=== PATIENT | male | born 1960 | race African-American/Black ===

== ENCOUNTER 2018-12-27 09:11 | Inpatient (IN) | payer OTHER ==
[2018-12-27 09:31] VITALS: BMI 21.8
--- NOTE | 2018-12-27 11:01 | HP ---
CIWA Score Nausea/Vomitin Muscle Tremors: 3 Anxiety: 2 Agitation: 2 Paroxysmal Sweats: 1-Minimal Palms Moist Orientation: 0-Oriented Tacttile Disturbances: 1-Very Mild Itch/Numbness Auditory Disturbances: 1-Very Mild Visual Disturbances: 0-None Headache: 2-Mild CIWA-Ar Total Score: 14 - Admission Criteria OASAS Guidelines: Admission for Medically Managed Detox: Requires at least one of the followin. CIWA greater than 12 2. Seizures within the past 24 hours 3. Delirium tremens within the past 24 hours 4. Hallucinations within the past 24 hours 5. Acute intervention needed for co occurring medical disorder 6. Acute intervention needed for co occurring psychiatric disorder 7. Severe withdrawal that cannot be handled at a lower level of care (continued vomiting, continued diarrhea, abnormal vital signs) requiring intravenous medication and/or fluids 8. Patient presents the following: CIWA greater than 12 Admission Criteria Met: Admission criteria met Admission ROS BHS - HPI Chief Complaint: i need help to stop drinking alcohol and crack Allergies/Adverse Reactions: Allergies Allergy/AdvReac Type Severity Reaction Status Date / Time fluphenazine [From Prolixin] Allergy Severe Difficulty Verified 12/27/18 10:31 Breathing haloperidol [From Haldol] Allergy Severe Difficulty Verified 12/27/18 10:31 Breathing History of Present Illness: this 58 years old male with alcohol and cocaine dependence,seeking detox, withdrawal symptom,last [facility] rehab 01/09/13 to 02/06/13 rehab [facility] syncope alcohol related hepatitis c history of cancer of lier on radiation therapy treated at [facility] in 05/25 hiv since 1985 weight loss nicotine dependence history of fx right mandible,right knee replacement,left knee surgery,fx of right ankle weight loss gerd multiple admissions in detox and rehab but relapsing longest period of sobriety in 1 year Exam Limitations: No Limitations - Ebola screening Have you traveled outside of the country in the last 21 days: No Have you had contact with anyone from an Ebola affected area: No Have you been sick,other than usual withdrawal symptoms: No Do you have a fever: No - Review of Systems Constitutional: Loss of Appetite, Malaise, Night Sweats, Changes in sleep, Weakness, Unintentional Wgt. Loss EENT: reports: Nose Congestion Respiratory: reports: No Symptoms reported Cardiac: reports: No Symptoms Reported GI: reports: Nausea, Poor Appetite, Vomiting, Abdominal cramping, Other (cancer of liver) : reports: No Symptoms Reported Musculoskeletal: reports: Back Pain, Muscle Pain Integumentary: reports: Dryness Neuro: reports: Headache, Tremors Endocrine: reports: No Symptoms Reported Hematology: reports: No Symptoms Reported, Other (hiv) Psychiatric: reports: No Sypmtoms Reported, Judgement Intact, Mood/Affect Appropiate, Orientated x3, other (severe depression bipolar disorder) Patient History - Patient Medical History Hx Anemia: No Hx Asthma: No Hx Chronic Obstructive Pulmonary Disease (COPD): No Hx Cancer: Yes (cancer of liver treated with radiation therapy at [facility] ) Hx Cardiac Disorders: No Hx Congestive Heart Failure: No Hx Hypertension: No Hx Hypercholesterolemia: No Hx Pacemaker: No HX Cerebrovascular Accident: No Hx Seizures: No Hx Dementia: No Hx Diabetes: No Hx Gastrointestinal Disorders: Yes (gerd) Hx Liver Disease: Yes (cancer of liver,hepatitis c) Hx Genitourinary Disorders: No Hx Sexually Transmitted Disorders: No Hx Renal Disease (ESRD): No Hx Thyroid Disease: No Hx Human Immunodeficiency Virus (HIV): Yes (since in 1985) Hx Hepatitis C: Yes (no treatment) Hx Depression: Yes (AND ANXIETY,bipolar) Hx Suicide Attempt: Yes (walk into traffic in 2010) Hx Bipolar Disorder: Yes Hx Schizophrenia: No Other Medical History: no suicidal,no homicidal - Patient Surgical History Past Surgical History: Yes Hx Orthopedic Surgery: Yes (FRACTURED RT. KNEE BONES IN 11/2012,right knee replacement) Other Surgical History: fx of right ankle,fx of mandible - PPD History Previous Implant?: Yes Documented Results: Negative w/proof PPD to be Administered?: No - Smoking Cessation Smoking history: Current every day smoker Aproximately how many cigarettes per day: 10 Hx Chewing Tobacco Use: No Initiated information on smoking cessation: Yes 'Breaking Loose' booklet given: 12/27/18 - Substance & Tx. History Hx Alcohol Use: Yes Hx Substance Use: Yes Substance Use Type: Alcohol, Cocaine Hx Substance Use Treatment: Yes - Substances Abused Crack Route: Smoking Frequency: Daily Amount used: $30 Age of first use: 16 Date of Last Use: 12/26/18 Alcohol-vodka/beer Route: Oral Frequency: Daily Amount used: 3 pts./1-2-6 pks. Age of first use: 16 Date of Last Use: 12/26/18 Family Disease History - Family Disease History Family History: Denies Admission Physical Exam [facility] - Vital Signs Vital Signs: Vital Signs - 24 hr 12/27/18 09:29 Temperature 99 F Pulse Rate 85 Respiratory 18 Rate Blood Pressure 121/75 - Physical General Appearance: Yes: Moderate Distress, Irritable, Sweating, Anxious HEENTM: Yes: Normal ENT Inspection, Pharynx Normal, Other (no upper teeth no denture) Respiratory: Yes: Lungs Clear, Normal Breath Sounds, No Respiratory Distress Neck: Yes: Supple Breast: Yes: Within Normal Limits Cardiology: Yes: Within Normal Limits, Regular Rhythm, Regular Rate, S1, S2 Abdominal: Yes: Within Normal Limits, Normal Bowel Sounds, Non Tender, Soft Genitourinary: Yes: Within Normal Limits Back: Yes: Muscle Spasm Musculoskeletal: Yes: Back pain, Muscle Pain Extremities: Yes: Tremors, Other (s/p right knee rplacement , s/p surgery left knee s/p surgery of right ankle) 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 NML intact, Fully Oriented, Alert, Motor Strength 5/5 Integumentary: Yes: Dry Lymphatic: Yes: Within Normal Limits - Diagnostic (1) Alcohol dependence with uncomplicated withdrawal Current Visit: Yes Status: Acute (2) Cocaine dependence Current Visit: Yes Status: Acute (3) Syncope Current Visit: Yes Status: Acute (4) Hepatitis C Current Visit: Yes Status: Acute (5) Cancer of liver Current Visit: Yes Status: Acute (6) HIV (human immunodeficiency virus infection) Current Visit: Yes Status: Acute (7) Bipolar disorder Current Visit: Yes Status: Acute (8) Weight loss Current Visit: Yes Status: Acute (9) Bipolar disorder Current Visit: Yes Status: Acute (10) Depression Current Visit: Yes Status: Acute (11) Nicotine dependence Current Visit: Yes Status: Acute (12) Status post right knee replacement Current Visit: Yes Status: Acute (13) History of left knee surgery Current Visit: Yes Status: Acute (14) Fracture of right ankle Current Visit: Yes Status: Acute Cleared for Admission [facility] - Detox or Rehab [facility] Level of Care: Medically Managed Detox Regimen/Protocol: Librium S Breath Alcohol Content Breath Alcohol Content: 0 Urine Drug Screen - Results Drug Screen Negative: No Urine Drug Screen Results: RADHA-Cocaine Inpatient Rehab Admission - Rehab Decision to Admit Inpatient rehab admission?: No
[2018-12-27] MEDS ORDERED: hydrOXYzine PAMOATE 25 MG CAPSULE (FP) PO PRN (11:19)
[2018-12-27] MEDS ORDERED: MAGNESIUM HYDROX 2400MG/30ML ORAL SUSPENSION 30 ML CUP PO PRN (11:19)
[2018-12-27] MEDS ORDERED: chlordiazePOXIDE HCL 25 MG CAPSULE PO PRN (11:19)
[2018-12-27] MEDS ORDERED: MAGNESIUM CITRATE 300 ML BOTTLE PO PRN (11:19)
[2018-12-27] MEDS ORDERED: MAG HYDROX/AL HYDROX/SIMETH 30 ML UNIT-DOSE CUP PO PRN (11:19)
[2018-12-27] MEDS ORDERED: ACETAMINOPHEN 325 MG TABLET (FP) PO PRN (11:19)
[2018-12-27] MEDS ORDERED: P-EPHED 60MG/TRIPROLIDI 2.5MG TABLET PO PRN (11:19)
[2018-12-27] MEDS ORDERED: MENTHOL/PHENOL 1 EACH UD MM PRN (11:19)
[2018-12-27] MEDS ORDERED: guaiFENesin/D-METHORPHAN HB 10 ML UNIT-DOSE CUPS PO PRN (11:19)
[2018-12-27] MEDS ORDERED: LOPERAMIDE HCL 2 MG CAPSULE PO PRN (11:19)
[2018-12-27] MEDS ORDERED: IBUPROFEN 400 MG TABLET (FP) PO PRN (11:19)
[2018-12-27] MEDS: chlordiazePOXIDE HCL 25 MG CAPSULE PO SCH ×2 (17:35→22:30)
[2018-12-27] MEDS ORDERED: MELATONIN 5 MG TABLETS PO PRN (22:00)
[2018-12-27] MEDS: THIAMINE HCL 100 MG TABLET (FP) PO SCH (22:30)
[2018-12-28] MEDS: chlordiazePOXIDE HCL 25 MG CAPSULE PO SCH ×4 (05:42→22:57)
[2018-12-28 11:11] LABS: ALK PHOS 240 U/L (45-117); ANION GAP 8 MMOL/L (8-16); BILIRUBIN,TOTAL 0.6 mg/dL (0.2-1); BLOOD UREA NITROGEN 13 mg/dL (7-18); CALCIUM 8.1 mg/dL (8.5-10.1); CHLORIDE 107 mmol/L (98-107); CO2 23 mmol/L (21-32); GLUCOSE,RANDOM 105 mg/dL (74-106); POTASSIUM 3.9 mmol/L (3.5-5.1); SGOT/AST 195 U/L (15-37); SGPT/ALT 88 U/L (13-61); SODIUM 138 mmol/L (136-145); TOT PROT 8.5 g/dl (6.4-8.2)
[2018-12-28] MEDS: PRENATAL VITAMINS W/ FOLIC ACID TABLET (FP) PO SCH (11:20)
--- NOTE | 2018-12-28 11:21 | PN ---
[facility] CIWA - CIWA Score Nausea/Vomitin-No Nausea/No Vomiting Muscle Tremors: 3 Anxiety: 2 Agitation: 3 Paroxysmal Sweats: 3 Orientation: 0-Oriented Tacttile Disturbances: 0-None Auditory Disturbances: 0-None Visual Disturbances: 0-None Headache: 0-None Present CIWA-Ar Total Score: 11 S Progress Note (SOAP) Subjective: sweats shakes interrupted sleep body aches tired Objective: 12/28/18 11:22 Vital Signs Temperature 98.2 F 12/28/18 09:34 Pulse Rate 78 12/28/18 09:34 Respiratory Rate 17 12/28/18 09:34 Blood Pressure 121/64 12/28/18 09:34 O2 Sat by Pulse Oximetry (%) Laboratory Tests 12/28/18 05:45 Sodium 138 Potassium 3.9 Chloride 107 Carbon Dioxide 23 Anion Gap 8 BUN 13 Creatinine 1.0 Creat Clearance w eGFR > 60 Random Glucose 105 Calcium 8.1 L Total Bilirubin 0.6 AST 195 H ALT 88 H Alkaline Phosphatase 240 H Total Protein 8.5 H Albumin 2.0 L labs pending aaox3 ambulating no acute distress Assessment: 12/28/18 11:22 withdrawal sx Plan: continue detox increase fluids labs pending
[2018-12-28 13:13] LABS: HEMATOCRIT 32.1 % (35.4-49); HEMOGLOBIN 11.2 GM/dL (11.7-16.9); MCH 33.4 pg (25.7-33.7); MEAN CELL VOLUME 95.5 fl (80-96); RBC 3.36 M/mm3 (4.00-5.60); RDW 16.3 % (11.9-15.9); WHITE BLOOD COUNT 3.1 K/mm3 (4.0-10.0)
[2018-12-28] MEDS: THIAMINE HCL 100 MG TABLET (FP) PO SCH (22:57)
[2018-12-29] MEDS: chlordiazePOXIDE HCL 25 MG CAPSULE PO SCH ×2 (05:36→10:59)
--- NOTE | 2018-12-29 10:09 | PN ---
S CIWA - CIWA Score Nausea/Vomitin-No Nausea/No Vomiting Muscle Tremors: 3 Anxiety: 2 Agitation: 3 Paroxysmal Sweats: 2 Orientation: 0-Oriented Tacttile Disturbances: 0-None Auditory Disturbances: 0-None Visual Disturbances: 0-None Headache: 0-None Present CIWA-Ar Total Score: 10 BHS Progress Note (SOAP) Subjective: body aches sweats little shakes Objective: 12/29/18 10:02 Vital Signs Temperature 98.4 F 12/29/18 09:27 Pulse Rate 76 12/29/18 09:27 Respiratory Rate 18 12/29/18 09:27 Blood Pressure 138/78 12/29/18 09:27 O2 Sat by Pulse Oximetry (%) Laboratory Tests 12/28/18 12/28/18 12/28/18 05:45 05:45 05:45 WBC 3.1 L RBC 3.36 L Hgb 11.2 L Hct 32.1 L MCV 95.5 MCH 33.4 MCHC 35.0 RDW 16.3 H Plt Count No Result Required. MPV No Result Required. Platelet Comment Slt plt clumping Sodium 138 Potassium 3.9 Chloride 107 Carbon Dioxide 23 Anion Gap 8 BUN 13 Creatinine 1.0 Creat Clearance w eGFR > 60 Random Glucose 105 Calcium 8.1 L Total Bilirubin 0.6 AST 195 H ALT 88 H Alkaline Phosphatase 240 H Total Protein 8.5 H Albumin 2.0 L RPR Titer Nonreactive aaox3 ambulating no acute distress Assessment: 12/29/18 10:09 withdrawal sx Plan: continue detox increase fluids
[2018-12-29] MEDS: PRENATAL VITAMINS W/ FOLIC ACID TABLET (FP) PO SCH (10:59)
[2018-12-29] MEDS: FERROUS SO4 325 MG TABLET (FP) PO SCH (18:53)
[2018-12-29] MEDS: chlordiazePOXIDE 5 MG CAPSULE PO SCH ×2 (18:54→23:04)
[2018-12-29] MEDS: THIAMINE HCL 100 MG TABLET (FP) PO SCH (23:04)
[2018-12-30] MEDS: chlordiazePOXIDE 5 MG CAPSULE PO SCH (05:16)
[2018-12-30 08:56] VITALS: TEMP 99
[2018-12-30 10:20] LABS: ALBUMIN 1.6 g/dl (3.4-5.0); ALK PHOS 242 U/L (45-117); ANION GAP 5 MMOL/L (8-16); BILIRUBIN,TOTAL 0.5 mg/dL (0.2-1); BLOOD UREA NITROGEN 13 mg/dL (7-18); CHLORIDE 108 mmol/L (98-107); CO2 24 mmol/L (21-32); CREATININE 0.7 mg/dL (0.55-1.3); GLUCOSE,RANDOM 71 mg/dL (74-106); POTASSIUM 3.7 mmol/L (3.5-5.1); SGOT/AST 109 U/L (15-37); SGPT/ALT 63 U/L (13-61); SODIUM 137 mmol/L (136-145); TOT PROT 7.3 g/dl (6.4-8.2)
--- NOTE | 2018-12-30 10:25 | PN ---
BHS Progress Note (SOAP) Subjective: sweats interrupted sleep body aches Objective: 12/30/18 10:21 Vital Signs Temperature 99.0 F 12/30/18 08:56 Pulse Rate 84 12/30/18 08:56 Respiratory Rate 16 12/30/18 08:56 Blood Pressure 132/77 12/30/18 08:56 O2 Sat by Pulse Oximetry (%) Laboratory Tests 12/28/18 12/28/18 12/28/18 05:45 05:45 05:45 WBC 3.1 L RBC 3.36 L Hgb 11.2 L Hct 32.1 L MCV 95.5 MCH 33.4 MCHC 35.0 RDW 16.3 H Plt Count No Result Required. MPV No Result Required. Platelet Comment Slt plt clumping Sodium 138 Potassium 3.9 Chloride 107 Carbon Dioxide 23 Anion Gap 8 BUN 13 Creatinine 1.0 Creat Clearance w eGFR > 60 Random Glucose 105 Calcium 8.1 L Total Bilirubin 0.6 AST 195 H ALT 88 H Alkaline Phosphatase 240 H Total Protein 8.5 H Albumin 2.0 L RPR Titer Nonreactive 12/30/18 06:30 WBC RBC Hgb Hct MCV MCH MCHC RDW Plt Count MPV Platelet Comment Sodium 137 Potassium 3.7 Chloride 108 H Carbon Dioxide 24 Anion Gap 5 L BUN 13 Creatinine 0.7 Creat Clearance w eGFR > 60 Random Glucose 71 L Calcium 7.0 L Total Bilirubin 0.5 AST 109 H ALT 63 H Alkaline Phosphatase 242 H Total Protein 7.3 Albumin 1.6 L RPR Titer repeated labs improving aaox3 ambulating no acute distress Assessment: 12/30/18 10:21 withdrawal sx Plan: continue detox increase fluids d/c in am
[2018-12-30 10:46] LABS: BASO % 0.8 % (0-2.0); EOS % 16.4 % (0-4.5); HEMATOCRIT 26.1 % (35.4-49); HEMOGLOBIN 10.1 GM/dL (11.7-16.9); LYMPH % 46.9 % (8-40); MCHC 38.5 g/dl (32.0-35.9); MEAN CELL VOLUME 96.1 fl (80-96); MEAN PLT VOLUME 8.9 fl (7.5-11.1); MONO % 14.4 % (3.8-10.2); NEUT % 21.5 % (42.8-82.8); PLATELET COUNT 61 K/MM3 (134-434); RBC 2.72 M/mm3 (4.00-5.60); RDW 16.1 % (11.9-15.9); WHITE BLOOD COUNT 2.7 K/mm3 (4.0-10.0)
[2018-12-30 13:47] VITALS: BP 121/72; PULSE 89
[2018-12-30] MEDS: PRENATAL VITAMINS W/ FOLIC ACID TABLET (FP) PO SCH (14:19)
[2018-12-30] MEDS: FERROUS SO4 325 MG TABLET (FP) PO SCH ×2 (14:19→17:44)
--- NOTE | 2018-12-30 14:59 | PN ---
S Progress Note Note: pt is feeling weakly, has a temp 102.0 bp 127/72, HR 86. Labs indicate pancytopenia. Report given to Dr. Sloan for evaluation.
[2018-12-30 15:34] LABS: ANISOCYTOSIS 1+; MACROCYTOSIS 1+; PLATELET ESTIMATE DECREASED; TARGET CELLS 1+
[2018-12-30] MEDS ORDERED: chlordiazePOXIDE HCL 10 MG CAPSULE PO SCH (17:00)
[2018-12-30] MEDS: THIAMINE HCL 100 MG TABLET (FP) PO SCH (23:17)
== END 2018-12-31 06:41 | disposition short-term general hospital (02) | DRG 774 ==
LOC: YASAS 09:11 → Y6N 11:09
PROVIDERS: ADMIT Surgery; ATTEND Surgery
PROC: HZ2ZZZZ Detoxification Services for Substance Abuse Treatment (ICD-10-PCS; principal; 2018-12-27)
DX: F10.230 Alcohol dependence with withdrawal, uncomplicated (principal); F14.20 Cocaine dependence, uncomplicated; F17.210 Nicotine dependence, cigarettes, uncomplicated; F31.9 Bipolar disorder, unspecified; D61.818 Other pancytopenia; R50.9 Fever, unspecified; B20 Human immunodeficiency virus [HIV] disease; B18.2 Chronic viral hepatitis C; K21.9 Gastro-esophageal reflux disease without esophagitis; Z85.05 Personal history of malignant neoplasm of liver; Z92.3 Personal history of irradiation; Z96.651 Presence of right artificial knee joint; Z88.8 Allergy status to other drugs, medicaments and biological substances; Z91.5 Personal history of self-harm
CPT/HCPCS: 36415; 80053; 85025; 85027; 86593

== ENCOUNTER 2018-12-30 16:25 | Inpatient (IN) | payer OTHER ==
--- NOTE | 2018-12-30 17:24 | PDOC ---
History of Present Illness - General Chief Complaint: Cold Symptoms Stated Complaint: FEVER Time Seen by Provider: 12/30/18 17:23 - History of Present Illness Initial Comments: 12/30/18 17:56 58 year old man coming from detox with a history of cocaine and alcohol abuse, HIV (compliant w/ Genvoya) does not know CD4 count, or viral load, Hep C (not on medications), liver cancer not on chemotherapy but has radiation once a month who presents with cough productive of yellow and brown phlegm for 2 days associated with muscle aches and fatigue. The patient is current in detox for approx 3 days and last used cocaine 2 days ago. The patient denies any injection drug use. He does not feel as if he is having any withdrawal symptoms currently. He denies chest pain, but admits to some shortness of breath and abdominal pain. Denies N/V/D/C, dysuria, hematuria. smoked 1ppd x40 years Dr. Reynoso PCP Past History - Past Medical History Allergies/Adverse Reactions: Allergies Allergy/AdvReac Type Severity Reaction Status Date / Time fluphenazine [From Prolixin] Allergy Severe Difficulty Verified 12/30/18 16:46 Breathing haloperidol [From Haldol] Allergy Severe Difficulty Verified 12/30/18 16:46 Breathing Home Medications: Ambulatory Orders Elviteg/Cob/Emtri/Tenof Alafen [Genvoya Tablet] 1 each PO DAILY 12/27/18 Sertraline HCl [Zoloft] 100 mg PO DAILY 12/27/18 Zolpidem Tartrate [Ambien] 10 mg PO HS 12/27/18 Anemia: No Asthma: No Cancer: Yes (cancer of liver treated with radiation therapy at [facility] 05/25) Cardiac Disorders: No CVA: No COPD: No CHF: No Dementia: No Diabetes: No GI Disorders: Yes (gerd) Disorders: No HTN: No Hypercholesterolemia: No Kidney Stones: No Liver Disease: Yes (cancer of liver,hepatitis c) Seizures: No Thyroid Disease: No - Surgical History Abdominal Surgery: No Appendectomy: No Cardiac Surgery: No Cholecystectomy: No Lung Surgery: No Neurologic Surgery: No Orthopedic Surgery: Yes (FRACTURED RT. KNEE BONES IN 11/2012,right knee replacement) - Reproductive History Testicular Surgery: No - Suicide/Smoking/Psychosocial Hx Smoking History: Current every day smoker Have you smoked in the past 12 months: No Number of Cigarettes Smoked Daily: 10 Information on smoking cessation initiated: No 'Breaking Loose' booklet given: 12/27/18 Hx Alcohol Use: No Drug/Substance Use Hx: No Substance Use Type: Alcohol, Cocaine Hx Substance Use Treatment: Yes *Physical Exam - Vital Signs Last Vital Signs Temp Pulse Resp BP Pulse Ox 101.3 F H 87 16 127/83 100 12/30/18 16:30 12/30/18 16:30 12/30/18 16:30 12/30/18 16:30 12/30/18 16:30 - Physical Exam Comments: 12/30/18 18:16 + cervical lympadenopathy clubbing of the digits cracked lips no abdominal tednerness coarse breath sounds Moderate Sedation - Procedure Monitoring Vital Signs: Procedure Monitoring Vital Signs Temperature 101.3 F H 12/30/18 16:30 Pulse Rate 87 12/30/18 16:30 Respiratory Rate 16 12/30/18 16:30 Blood Pressure 127/83 12/30/18 16:30 O2 Sat by Pulse Oximetry (%) 100 12/30/18 16:30 ED Treatment Course - LABORATORY CBC & Chemistry Diagram: 12/30/18 17:25 12/30/18 17:25 Medical Decision Making - Medical Decision Making 12/30/18 18:23 58 year old man coming from detox with a history of cocaine and alcohol abuse, HIV (compliant w/ Genvoya) does not know CD4 count, or viral load, Hep C (not on medications), liver cancer not on chemotherapy but has radiation once a month who presents with cough productive of yellow and brown phlegm for 2 days associated with muscle aches and fatigue. The patient is current in detox for approx 3 days and last used cocaine 2 days ago. The patient denies any injection drug use. He does not feel as if he is having any withdrawal symptoms currently. He denies chest pain, but admits to some shortness of breath and abdominal pain. ED Course: consider influenza vs pna vs bronchitis vs copd vs pcp cbc, cmp, cxr, influenza swab, viral load, cd4 12/30/18 23:27 antiobitiocs for presumed PNA *DC/Admit/Observation/Transfer Diagnosis at time of Disposition: Fever, HIV (human immunodeficiency virus infection) - Discharge Dispostion Condition at time of disposition: Fair Decision to Admit order: Yes - Referrals - Patient Instructions - Post Discharge Activity
[2018-12-30] MEDS ORDERED: ACETAMINOPHEN 325 MG TABLET (FP) PO ONE (17:35)
--- NOTE | 2018-12-30 17:35 | PDOC ---
Attending Attestation - Resident Resident Name: Angely Rodriguez - ED Attending Attestation I have performed the following: I have examined & evaluated the patient, The case was reviewed & discussed with the resident, I agree w/resident's findings & plan - HPI HPI: 12/30/18 20:58 Mr. Vyas is a 58 year old male with past medical history significant for HIV (compliant w/ Genvoya, does not know CD4 count or viral load), Hep C (not on medications), liver cancer (not on chemotherapy but has radiation once a month) , substance abuse (alcohol and cocaine), presents to the emergency department from detox for 2 days of productive cough with yellow/ brown sputum, generalized body aches and fatigue. The patient also endorses mild shortness of breath and abdominal pain. - Physicial Exam PE: 12/30/18 20:58 NAD, malaised appearing, sleeping. PERRL, EOMI, nl conjunctiva, anicteric; neck supple. lungs clear, RRR, abdomen soft nontender. DIMAS x4, no focal neuro deficits. No peripheral edema. normal color for ethnicity, WWP. 12/30/18 23:30 - Medical Decision Making 12/30/18 20:58 See HPI for details Vital signs reviewed, +fever; otherwise wnl Prior notes reviewed, including admissions, discharges and consultations. laboratory results and imaging reviewed, basic labs and lytes wnl, notable for baseline pancytopenia. UA_pending. CXR_clear, no pathology, no infiltrate. EKG normal sinus rhythm, no interval abnormalities, narrow QRS, ST and T wave segments and morphology normal. Nonspecific T wave abnormalities ED course: IV fluids and hydration - neg flu - blood cx pending, fever workup - for now, cover for respiratory etiology, pna, with cef/azithromycin for typical and atypical coverage.. - FUO, immunocompromised state with h/o HIV - librium for alcohol w/d syndrome and management. admit for fever/infectious workup. alternative etiology likely viral syndrome vs pna. 12/30/18 23:32
[2018-12-30] MEDS ORDERED: SODIUM CHLORIDE 0.9% 500 ML INFUS.BAG IV ONE (18:03)
[2018-12-30 19:23] LABS: BASO % 0.7 % (0-2.0); EOS % 13.6 % (0-4.5); HEMATOCRIT 32.3 % (35.4-49); HEMOGLOBIN 11.3 GM/dL (11.7-16.9); LYMPH % 45.8 % (8-40); MCH 33.1 pg (25.7-33.7); MEAN CELL VOLUME 94.7 fl (80-96); MEAN PLT VOLUME 8.1 fl (7.5-11.1); MONO % 11.5 % (3.8-10.2); NEUT % 28.4 % (42.8-82.8); PLATELET COUNT 68 K/MM3 (134-434); RBC 3.41 M/mm3 (4.00-5.60); RDW 16.2 % (11.9-15.9); WHITE BLOOD COUNT 3.3 K/mm3 (4.0-10.0)
[2018-12-30 19:50] LABS: ALBUMIN 1.8 g/dl (3.4-5.0); ALK PHOS 271 U/L (45-117); ANION GAP 4 MMOL/L (8-16); BILIRUBIN,TOTAL 0.5 mg/dL (0.2-1); BLOOD UREA NITROGEN 16 mg/dL (7-18); CALCIUM 7.9 mg/dL (8.5-10.1); CHLORIDE 107 mmol/L (98-107); CO2 25 mmol/L (21-32); CREATININE 0.7 mg/dL (0.55-1.3); GLUCOSE,RANDOM 77 mg/dL (74-106); POTASSIUM 4.3 mmol/L (3.5-5.1); SGOT/AST 111 U/L (15-37); SGPT/ALT 68 U/L (13-61); SODIUM 135 mmol/L (136-145); TOT PROT 8.1 g/dl (6.4-8.2)
[2018-12-30] MEDS ORDERED: ACETAMINOPHEN 325 MG TABLET (FP) ONE (19:58)
[2018-12-30] MEDS: SODIUM CHLORIDE 1,000 ML IV SCH (20:09)
[2018-12-30 21:41] LABS: PLATELET ESTIMATE DECREASED
[2018-12-30] MEDS ORDERED: chlordiazePOXIDE HCL 25 MG CAPSULE PO ONE (22:50)
[2018-12-30] MEDS ORDERED: CEFTRIAXONE 1,000 MG in DEXTROSE 5%-WATER - 50 ML IVPB ONE (23:26)
[2018-12-30] MEDS ORDERED: AZITHROMYCIN 250 MG TABLET PO ONE (23:26)
[2018-12-30] MEDS ORDERED: chlordiazePOXIDE HCL 25 MG CAPSULE ONE (23:49)
[2018-12-30] MEDS ORDERED: CEFTRIAXONE 1 GM/50 ML BAG ONE (23:49)
[2018-12-30] MEDS ORDERED: AZITHROMYCIN 250 MG TABLET ONE (23:49)
--- NOTE | 2018-12-31 00:34 | PN ---
Teaching Attending Note Name of Resident: Dick Infante ATTENDING PHYSICIAN STATEMENT I saw and evaluated the patient. I reviewed the resident's note and discussed the case with the resident. I agree with the resident's findings and plan as documented. SUBJECTIVE: He has been at [facility] since the . For the past 2 days he has had productive cough with yellow and brown sputum and subjective fevers. Cough worsened today and he was noted to be febrile to 101 at [facility]. He was sent to the ER for further treatment and workup. In the ER he was again febrile and he was given ceftriaxone and azithromycin. He is not complaining of SOB now but did have some intermittently prior to coming to [facility] and he is saturating 100% on RA. His BP and HR are stable. He states that he is compliant with his HAART medication. He is a poor historian and contradicted himself in giving history. He denies dysuria, abdominal pain, nausea, vomiting, or diarrhea. He will be placed on observation on the medicine service. 10 sys ROS done and negative aside from HPI PMH (HIV (unknown CD4/VL), HCV (untreated), Liver carcinoma, Polysubstance abuse , alcohol abuse) PSH, Family hx, Social hx reviewed Medication Reconciliation pending; Ambien, Zoloft, HAART OBJECTIVE: VS, labs, imaging reviewed NAD, AAO, resting comfortably in bed NC AT EOMI PERRLA RRR s1/2 no mgr Lungs CTAB, w/ sym exp NT ND +BS CN2-12 wnl, no fnd Normal mood, appropriate behavior CXR reviewed; no acute disease ASSESSMENT AND PLAN: Patient presents with fever and cough; he is HIV (on HAART, unknown last CD4/VL ) and Hepatitis C positive (untreated; unknown reason) with recent radiation tx for 'liver cancer' of unknown etiology (?HCC) at [facility] 1) Acute Febrile Illness -Given cough with the fever and absence of other localizing sx I would be inclined to believe this would likely be a pulmonary source. He has no tere PNA on CXR but could be occult if drhydrated. Given his risks with HIV we wanted to check for any occult process so CT chest pending. Already covered x24 hours with abx given in the ER. Will followup his CD4 and the results of the infectious workup (blood, sputum cultures; ESR/CRP; viral panel). If indicated will continue empiric coverage. ID will need to be involved to continue his HAART per policy so I would be inclined to defer further tx to their service. 2) Hepatitis C + stated recent liver cancer -From the best we can discern he was not treated with radiation and possibly chemo. Needs close OP followup. -No GI issues at the moment; can call [facility] in AM to obtain old records 3) HIV on HAART -Continue HAART, involve ID. Appreciate expert opinion 4) Hx Polysubstance Abuse -Monitor for s/s WD; last use days ago prior to rehab 5) Hx EtOH Abuse -Thiamine/Folate, CIWA protocol 6) Chronic Transaminitis -Obtain old records and compare to those from [facility]; if further testing is done then pursue it once we ascertained we're not repeating things
--- NOTE | 2018-12-31 00:55 | HP ---
CHIEF COMPLAINT: Cough and weakness PCP: Dr. Reynoso ([place]) Radiation: [place] HISTORY OF PRESENT ILLNESS: 58yo M with h/o polysubstance abuse (Crack and Alcohol), HIV (unknown CD4 and VL), HCV (not on treatment), and liver carcinoma (likely HCC treated with radiation) who presents from [facility] today due to cough alongside of fever. Pt was in his 3rd out of 4th day of treatment for alcohol detox when a routine vital check noted he was febrile to 101*F orally. Pt was sent here and his fever was confirmed at 101.3*F orally. Pt endorses productive cough with yellow- brown sputum intermittently. He notes having slight sinus pressure and admits to having slight shortness of breath on prior days. Currently he has minimal cough with no shortness of breath. He notes general malaise. Denies any sick contacts. Lives alone in an apartment prior to detox. Pt denies any odynophagia at this point, headaches, lightheadedness, shortness of breath, chest pain, palpitations, abdominal pain, diarrhea, dysuria, and polyuria. Recent Travel: Denies PAST MEDICAL HISTORY: Polysubstance abuse (Crack; last use 1 week prior, Alcohol: last use 3-4 days ago) HCV (? not treated due to liver transplant) HIV (unknown CD4, VL) Liver Ca (likely HCC undergoing radiation tx; last tx 1 month prior) PAST SURGICAL HISTORY: None Social History: Smoking: Denies Alcohol: As above; baseline is 2 pints of vodka +/- 2-3 beers Drugs: As above Family History: Noncontributory Allergies fluphenazine [From Prolixin] Allergy (Severe, Verified 12/30/18 16:46) Difficulty Breathing haloperidol [From Haldol] Allergy (Severe, Verified 12/30/18 16:46) Difficulty Breathing HOME MEDICATIONS: Home Medications Medication Instructions Recorded Elviteg/Cob/Emtri/Tenof Alafen 1 each PO DAILY 12/27/18 [Genvoya Tablet] Sertraline HCl [Zoloft] 100 mg PO DAILY 12/27/18 Zolpidem Tartrate [Ambien] 10 mg PO HS 12/27/18 REVIEW OF SYSTEMS As per HPI PHYSICAL EXAMINATION Vital Signs - 24 hr 12/30/18 12/30/18 16:30 21:41 Temperature 101.3 F H 99.0 F Pulse Rate 87 Respiratory 16 Rate Blood Pressure 127/83 O2 Sat by Pulse 100 Oximetry (%) GENERAL: NAD, awake, alert, and fully oriented HEENT: NC/AT, EOMi, KAILEY, sclera anicteric with minimal injections, MMM, plaques noted in posterior oropharynx LUNGS: CTA bilaterally. No wheezes, and no crackles. No accessory muscle use. HEART: RRR, normal S1 and S2 without murmur ABDOMEN: Soft, NT/ND, normoactive bowel sounds, no guarding. No hepatomegaly to percussion or palpation. MUSCULOSKELETAL: No CVA tenderness. EXTREMITIES: 2+ pulses, warm, well-perfused. No calf tenderness. No peripheral edema. NEUROLOGICAL: Nonfocal. Normal speech. Normal gait. PSYCHIATRIC: Cooperative. Good eye contact. Appropriate mood and affect. SKIN: Warm, dry, no rashes Laboratory Results 12/30/18 12/30/18 12/30/18 17:25 17:25 17:25 WBC 3.3 L RBC 3.41 L Hgb 11.3 L Hct 32.3 L D MCV 94.7 MCH 33.1 D MCHC 35.0 RDW 16.2 H Plt Count 68 L MPV 8.1 Absolute Neuts (auto) 0.9 L Neutrophils % 28.4 L D Lymphocytes % 45.8 H Monocytes % 11.5 H Eosinophils % 13.6 H Basophils % 0.7 Nucleated RBC % 0 Platelet Estimate Decreased Platelet Comment No clumping noted Sodium 135 L Potassium 4.3 Chloride 107 Carbon Dioxide 25 Anion Gap 4 L BUN 16 Creatinine 0.7 Creat Clearance w eGFR > 60 Random Glucose 77 Calcium 7.9 L Total Bilirubin 0.5 AST 111 H ALT 68 H Alkaline Phosphatase 271 H Total Protein 8.1 Albumin 1.8 L Influenza A (Rapid) Negative Influenza B (Rapid) Negative ASSESSMENT/PLAN: URI likely 2/2 to viral syndrome Thrush Pancytopenia HIV Liver Ca (likely HCC) HCV --f/u CD4 count --Chest CT noncontrast to ultimately r/o infiltrative process given his potential immunocompromised state. Suspect febrile illness is respiratory in nature given symptomology. --Respiratory viral PCR swab --Flu negative --Continue HAART therapy (Genvoya) --Nystatin swish and swallow, however ultimate treatment will be based upon CD4 count given IC state --Current CIWA 0 --Librium protocol based on S notes with 3 doses of 10mg remaining to complete detox. Continued for the morning. --Will attempt to obtain old records regarding pt's transaminitis; likely chronic vs. 2/2 to radiation and mass FEN: Fluids: Bolus as needed; encourage PO intake Electrolyte abnormalities: None currently Nutrition: Regular diet PPX: DVT - SCDs due to pancytopenia GI - Not indicated Dispo: M/s obs Case discussed with Dr. Chanelle Infante, DO - IM PGy-2 Visit type - Emergency Visit Emergency Visit: Yes ED Registration Date: 12/31/18 Care time: The patient presented to the Emergency Department on the above date and was hospitalized for further evaluation of their emergent condition. - New Patient This patient is new to me today: Yes Date on this admission: 12/31/18 - Critical Care Critical Care patient: No
[2018-12-31] MEDS ORDERED: chlordiazePOXIDE HCL 25 MG CAPSULE PO PRN (02:14)
[2018-12-31] MEDS ORDERED: chlordiazePOXIDE 5 MG CAPSULE ONE ×3 (05:25→18:30)
[2018-12-31] MEDS: chlordiazePOXIDE HCL 10 MG CAPSULE PO SCH ×3 (06:22→18:40)
--- NOTE | 2018-12-31 10:45 | PN ---
Progress Note (short form) - Note Progress Note: c/o generalized fatigue and odynophagia. denies CP, SOB, fever, chills, N/V/C/D , dysuria or hematura pt is a poor historian and is unclear why hes in the hospital Current Medications Generic Name Dose Route Start Last Admin Trade Name Freq PRN Reason Stop Dose Admin Chlordiazepoxide HCl 25 mg 12/31/18 02:14 Librium - PO 01/03/19 02:13 Q4H PRN WITHDRAWAL(CONT SUBST) Chlordiazepoxide HCl 10 mg 12/31/18 05:00 12/31/18 10:35 Librium - PO 12/31/18 17:01 10 mg [id number] ALIREZA Administration Sodium Chloride 1,000 mls @ 0 mls/hr 12/30/18 18:15 12/30/18 20:09 Normal Saline - IV 1,000 mls/hr ASDIR ALIREZA Administration Wide Open Last Vital Signs Temp Pulse Resp BP Pulse Ox 99.1 F 74 20 125/85 95 12/31/18 06:30 12/31/18 06:30 12/31/18 06:30 12/31/18 06:30 12/31/18 05:08 General fatigue, older than stated age HEENT +oral plaques CV S1 S2 RRR no murmur/rub/gallop Lungs scattered rhonchi. poor inspiraotry effort ABdomen soft NT/ND extremiteis no pedal edema no rashes CBCD WBC 3.2 K/mm3 (4.0-10.0) L 12/31/18 11:45 RBC 3.10 M/mm3 (4.00-5.60) L 12/31/18 11:45 Hgb 10.9 GM/dL (11.7-16.9) L 12/31/18 11:45 Hct 30.5 % (35.4-49) L 12/31/18 11:45 MCV 98.3 fl (80-96) H 12/31/18 11:45 MCHC 35.8 g/dl (32.0-35.9) 12/31/18 11:45 RDW 16.6 % (11.9-15.9) H 12/31/18 11:45 Plt Count 63 K/MM3 (134-434) L 12/31/18 11:45 MPV 7.8 fl (7.5-11.1) 12/31/18 11:45 CMP Sodium 137 mmol/L (136-145) 12/31/18 11:45 Potassium 3.8 mmol/L (3.5-5.1) 12/31/18 11:45 Chloride 106 mmol/L (98-107) 12/31/18 11:45 Carbon Dioxide 26 mmol/L (21-32) 12/31/18 11:45 Anion Gap 4 MMOL/L (8-16) L 12/31/18 11:45 BUN 15 mg/dL (7-18) 12/31/18 11:45 Creatinine 0.8 mg/dL (0.55-1.3) 12/31/18 11:45 Creat Clearance w eGFR > 60 (>60) 12/31/18 11:45 Calcium 7.4 mg/dL (8.5-10.1) L 12/31/18 11:45 Total Bilirubin 0.5 mg/dL (0.2-1) 12/30/18 17:25 AST 111 U/L (15-37) H 12/30/18 17:25 ALT 68 U/L (13-61) H 12/30/18 17:25 Alkaline Phosphatase 271 U/L (45-117) H 12/30/18 17:25 Total Protein 8.1 g/dl (6.4-8.2) 12/30/18 17:25 Albumin 1.8 g/dl (3.4-5.0) L 12/30/18 17:25 A/P 58yo M with PMH continuous polysubstance abuse (crack and ETOH), HIV, HCV unclear if treated, HCC s/p Rtx [place] [facility] [place] productive cough adn fever 101 1. Sepsis due to suspected PNA- Tm 101.3 with leukopenia. +neutropenic. awaiting official CT scan but nothing seen on CXR. started on Azithro and Ceftriaxone, would likely require broadened coverage given risk factors and unknown CD4 count. consult ID. check UA, uag for legionella, sputum Cx. contact precautions for neutropenia. flu negative 2. Thrush- start nystatin swish and swallow. if doesnt improve will need to consider its progression to esophagus with systemic treatement 3. HIV- check CD4 count/VL. cont HARRT 4. ETOH withdrawal- ciwa 0. complete librium detox from [facility] [place] 5. HCV- unknown if treated. reach out to PMD on wednesday 6. HCC - on current radiation therapy 7. DVT ppx- start lovenox
[2018-12-31 12:13] LABS: BASO % 0.6 % (0-2.0); EOS % 13.1 % (0-4.5); HEMATOCRIT 30.5 % (35.4-49); HEMOGLOBIN 10.9 GM/dL (11.7-16.9); LYMPH % 36.6 % (8-40); MCH 35.2 pg (25.7-33.7); MCHC 35.8 g/dl (32.0-35.9); MEAN CELL VOLUME 98.3 fl (80-96); MEAN PLT VOLUME 7.8 fl (7.5-11.1); NEUT % 33.7 % (42.8-82.8); PLATELET COUNT 63 K/MM3 (134-434); RDW 16.6 % (11.9-15.9); WHITE BLOOD COUNT 3.2 K/mm3 (4.0-10.0)
[2018-12-31 12:38] LABS: ANION GAP 4 MMOL/L (8-16); BLOOD UREA NITROGEN 15 mg/dL (7-18); CALCIUM 7.4 mg/dL (8.5-10.1); CHLORIDE 106 mmol/L (98-107); CO2 26 mmol/L (21-32); CREATININE 0.8 mg/dL (0.55-1.3); GLUCOSE,RANDOM 97 mg/dL (74-106); POTASSIUM 3.8 mmol/L (3.5-5.1); SODIUM 137 mmol/L (136-145)
[2018-12-31 15:14] LABS: ANISOCYTOSIS 1+; MACROCYTOSIS 1+; OVALOCYTE 1+; PLATELET ESTIMATE DECREASED; TEAR DROP CELLS 1+
[2018-12-31] MEDS: ENOXAPARIN NA (PORCINE) 40 MG/0.4 ML DISP.SYRIN SQ SCH (15:39)
[2018-12-31] MEDS: NYSTATIN 500,000 UNITS/5 ML SUSPENSION PO SCH ×2 (15:39→18:40)
[2018-12-31 16:39] LABS: URINE APPEARANCE CLEAR; URINE BILIRUBIN NEGATIVE (<2.0 mg/dL); URINE COLOR YELLOW; URINE GLUCOSE (UA) NEGATIVE (NEGATIVE); URINE KETONE NEGATIVE (NEGATIVE); URINE LEUK ESTERASE NEGATIVE (NEGATIVE); URINE NITRITE NEGATIVE (NEGATIVE); URINE PROTEIN NEGATIVE (NEGATIVE); URINE UROBILINOGEN 4.0 E.U/dl mg/dL (0.2-1.0)
[2018-12-31] MEDS: SODIUM CHLORIDE 1,000 ML IV SCH (18:41)
--- NOTE | 2018-12-31 22:04 | EKG ---
Test Reason : Blood Pressure : / mmHG Vent. Rate : 082 BPM Atrial Rate : 082 BPM P-R Int : 116 ms QRS Dur : 080 ms QT Int : 370 ms P-R-T Axes : 025 065 015 degrees QTc Int : 432 ms NORMAL SINUS RHYTHM NORMAL ECG NO PREVIOUS ECGS AVAILABLE Confirmed by MARISSA POLANCO MD ([id number]) on 12/31/2018 10:03:42 PM Referred By: Confirmed By:MARISSA POLANCO MD
[2018-12-31] MEDS ORDERED: IBUPROFEN 400 MG TABLET (FP) PO ONE (22:16)
[2019-01-01] MEDS: NYSTATIN 500,000 UNITS/5 ML SUSPENSION PO SCH ×4 (00:18→17:27)
--- NOTE | 2019-01-01 08:50 | PN ---
Physical Exam: SUBJECTIVE: Patient seen and examined at bedside. No new complaints. States that his cough is improved and he is no longer bringing up sputum. OBJECTIVE: Vital Signs Period Temp Pulse Resp BP Sys/Weinberg Pulse Ox Last 24 Hr 97.4 F-100.3 F 55-84 20-20 108-140/64-76 98-98 GENERAL: The patient is awake, alert, and fully oriented, in no acute distress. HEAD: Normal with no signs of trauma. NECK: Trachea midline, full range of motion, supple. LUNGS: Breath sounds equal, clear to auscultation bilaterally, no wheezes, no crackles, no accessory muscle use. HEART: Regular rate and rhythm, S1, S2 without murmur, rub or gallop. ABDOMEN: Soft, nontender, nondistended, normoactive bowel sounds, no guarding, no rebound, no hepatosplenomegaly, no masses. EXTREMITIES: 2+ pulses, warm, well-perfused, no edema. NEUROLOGICAL: Cranial nerves II through X grossly intact. Normal speech, gait not observed. SKIN: Warm, dry, normal turgor, no rashes or lesions noted Laboratory Results - last 24 hr 12/31/18 12/31/18 12/31/18 07:00 07:00 11:45 WBC 3.2 L RBC 3.10 L Hgb 10.9 L Hct 30.5 L MCV 98.3 H MCH 35.2 H MCHC 35.8 RDW 16.6 H Plt Count 63 L MPV 7.8 Absolute Neuts (auto) 1.1 L Total Counted 100 Neutrophils % 33.7 L Neutrophils % (Manual) 37.0 L D Band Neutrophils % 5.0 Lymphocytes % 36.6 D Lymphocytes % (Manual) 35.0 D Monocytes % 16.0 H Monocytes % (Manual) 8 Eosinophils % 13.1 H Eosinophils % (Manual) 14.0 H Basophils % 0.6 Nucleated RBC % 1 H Platelet Estimate Decreased Platelet Comment No clumping noted Anisocytosis 1+ Macrocytosis 1+ Tear Drop Cells 1+ Ovalocytes 1+ ESR 64 H Sodium Potassium Chloride Carbon Dioxide Anion Gap BUN Creatinine Creat Clearance w eGFR Random Glucose Calcium C-Reactive Protein 0.7 H Urine Color Urine Appearance Urine pH Ur Specific Monroe Urine Protein Urine Glucose (UA) Urine Ketones Urine Blood Urine Nitrite Urine Bilirubin Urine Urobilinogen Ur Leukocyte Esterase 12/31/18 12/31/18 11:45 12:00 WBC RBC Hgb Hct MCV MCH MCHC RDW Plt Count MPV Absolute Neuts (auto) Total Counted Neutrophils % Neutrophils % (Manual) Band Neutrophils % Lymphocytes % Lymphocytes % (Manual) Monocytes % Monocytes % (Manual) Eosinophils % Eosinophils % (Manual) Basophils % Nucleated RBC % Platelet Estimate Platelet Comment Anisocytosis Macrocytosis Tear Drop Cells Ovalocytes ESR Sodium 137 Potassium 3.8 Chloride 106 Carbon Dioxide 26 Anion Gap 4 L BUN 15 Creatinine 0.8 Creat Clearance w eGFR > 60 Random Glucose 97 Calcium 7.4 L C-Reactive Protein Urine Color Yellow Urine Appearance Clear Urine pH 7.0 D Ur Specific Monroe 1.018 Urine Protein Negative Urine Glucose (UA) Negative Urine Ketones Negative Urine Blood Negative Urine Nitrite Negative Urine Bilirubin Negative Urine Urobilinogen 4.0 e.u/dl Ur Leukocyte Esterase Negative Active Medications Generic Name Dose Route Start Last Admin Trade Name Freq PRN Reason Stop Dose Admin Chlordiazepoxide HCl 25 mg 12/31/18 02:14 Librium - PO 01/03/19 02:13 Q4H PRN WITHDRAWAL(CONT SUBST) Enoxaparin Sodium 40 mg 12/31/18 13:30 12/31/18 15:39 Lovenox - SQ 40 mg DAILY ALIREZA Administration Sodium Chloride 1,000 mls @ 0 mls/hr 12/30/18 18:15 12/31/18 18:41 Normal Saline - IV Not Given ASDIR ALIREZA Wide Open Nystatin 500,000 units 12/31/18 12:00 01/01/19 05:23 Nystatin Oral Suspension - PO 500,000 units Q6HPO ALIREZA Administration ASSESSMENT/PLAN: The patient is a 58 yo m w/ PMH ETOH abuse, HIV (untreated), hep C who was sent to the ED from [facility] for cough and fever, found to be neutropenic and febrile. #Cough, fever, neutropenia -CT chest negative for infiltrate -fevers improving (Tmax 100.3) -urine for legionella negative -UA negative for infection -Urine cx pending -Respiratory virus panel pending -source unclear at this time -as patient improving off ABX, will continue to observe -f/u ID recommendations. -monitor WBC counts -Neutropenic precautions #oral candidiasis -2/2 immunocompromised state -Nystatin swish and swallow q6h #HIV -not currently on HAART -f/u ID reccs for further guideance -CD4+, viral load pending #ETOH abuse -will finish detox today -Librium 25mg Q6H PRN -pt interested in rehab; will consult detox for possible DC back to [facility] tomorrow #FEN -no fluids indicated -lytes WNL, monitor and replete PRN -neutropenic diet #Prophy -Lovenox 40mg daily on hold 12/10 thrombocytopenia #dispo -admit med surg -possible discharge on 01/02 if patient remains medically stable and [facility] has open beds Visit type - Emergency Visit Emergency Visit: Yes ED Registration Date: 12/31/18 Care time: The patient presented to the Emergency Department on the above date and was hospitalized for further evaluation of their emergent condition. - New Patient This patient is new to me today: Yes Date on this admission: 01/01/19 - Critical Care Critical Care patient: No - Discharge Referral Referred to [facility] Med P.C.: No
[2019-01-01] MEDS: ENOXAPARIN NA (PORCINE) 40 MG/0.4 ML DISP.SYRIN SQ SCH (09:39)
[2019-01-01 10:09] LABS: BASO % 0.8 % (0-2.0); EOS % 22.8 % (0-4.5); HEMATOCRIT 34.4 % (35.4-49); HEMOGLOBIN 11.8 GM/dL (11.7-16.9); LYMPH % 49.2 % (8-40); MCH 32.3 pg (25.7-33.7); MCHC 34.4 g/dl (32.0-35.9); MEAN CELL VOLUME 93.8 fl (80-96); MONO % 9.1 % (3.8-10.2); NEUT % 18.1 % (42.8-82.8); PLATELET COUNT 60 K/MM3 (134-434); RBC 3.67 M/mm3 (4.00-5.60); RDW 16.9 % (11.9-15.9); WHITE BLOOD COUNT 2.4 K/mm3 (4.0-10.0)
[2019-01-01 12:53] LABS: ANISOCYTOSIS 1+; MACROCYTOSIS 1+; PLATELET ESTIMATE DECREASED; TARGET CELLS 2+; TEAR DROP CELLS 1+
--- NOTE | 2019-01-01 12:58 | PN ---
Teaching Attending Note Name of Resident: Raul Butt ATTENDING PHYSICIAN STATEMENT I saw and evaluated the patient. I reviewed the resident's note and discussed the case with the resident. I agree with the resident's findings and plan as documented. SUBJECTIVE:cough has resolved. had some chills last night but otherwise feels slightly better. denies cp, SOB, fever, N/V/C/D, dysuria, OBJECTIVE: Last Vital Signs Temp Pulse Resp BP Pulse Ox 97.9 F 65 20 122/73 100 01/01/19 10:01/01/19 10:01/01/19 10:01/01/19 10:01/01/19 09:54 General NAD Lungs CTA B/L no wheezing/rales/rhonchi Abdomen soft NT/ND ASSESSMENT AND PLAN: 58yo M with PMH continuous polysubstance abuse (crack and ETOH), HIV, HCV unclear if treated, HCC s/p Rtx sent from [facility] with productive cough adn fever 101 1. Sepsis due to suspected PNA- Tm 100.3 with leukopenia. +neutropenic. CT not showing any infiltrate. no other source of infection. UA and BCx negative. other cx pending. spoke with ID and will evaluate the patient. flu negative 2. Thrush- on nystatin S&S 3. HIV- check CD4 count/VL. cont HARRT 4. thrombocyotpenia- no signs of bleeding. monitor 5. ETOH withdrawal- ciwa 0. will complete librium detox today. interested in hearing about inpatient rehab. will consult detox from [facility] 6. HCV- unknown if treated. reach out to PMD on wednesday 7. HCC - on current radiation therapy 8. DVT ppx- SCD. hold pharmacologic anticoag in setting of thrombocytopenia
--- NOTE | 2019-01-01 14:24 | PN ---
Progress Note (short form) - Note Progress Note: ID CONSULT DICTATED 58 Y/O MALE PMH AIDS ADMITTED FROM DETOX WITH FEVER, COUGH, WEAKNESS. FLU SWAB(-) CXR/CT NEG FOR PNEUMONIA +PANCYTOPENIA, EOSINOPHILIA, ELEVATED LFTS ? CHRONIC OFF ANTIBIOTICS OBSERVE OBTAIN RECORDS FROM PRIMARY PROVIDER RE CD4/VL, BASELINE CBC, LFTS PT STATES HIS MOST RECENT MARKERS ARE FROM 4MO AGO AND THAT HE HAD AN UNDETECTABLE VIRAL LOAD AND CD4 IN "200s' REPORTS ADHERENCE TO GENVOYA
--- NOTE | 2019-01-01 16:12 | CONS ---
DATE OF CONSULTATION: DATE OF DICTATION: 01/01/2019 INFECTIOUS DISEASE CONSULTATION HISTORY OF PRESENT ILLNESS: The patient is a 58-year-old male with a history of acquired immunodeficiency syndrome evaluated for fever. He was admitted from detox with fever and cough. The patient had presented to [facility] for detox from alcohol and crack cocaine. After the third admission day he developed a fever to 101. He also had a 2-day history of cough productive of yellowish sputum and generalized body aches. He was transferred to the emergency room where an influenza swab was performed and was negative. Chest x-ray was negative for acute infiltrate. A CAT scan of the chest subsequently showed some noncalcified pulmonary nodules and no focal consolidation. He was empirically treated with antibiotics. Cultures have been negative. His temperatures have improved. He is presently afebrile. He has no complaints at the present time. He denies any chest pain, shortness of breath, cough, sputum production or hemoptysis. He denies any dysuria or hematuria, no vomiting or diarrhea. PAST MEDICAL HISTORY: Positive for HIV infection. He was diagnosed in 1996. He reports having an AIDS diagnosis. He is followed by a clinic in the [place] and is adherent to Genvoya which he has been on for approximately 6 to 8 months. He reports that his last viral markers from 4 months ago showed an undetectable viral load and a T-cell count in the 200s. His past medical history also includes polysubstance abuse including cocaine and alcohol. He denies heroine use or injection drug use. He also has a history of hepatitis C and liver cancer for which he received radiation therapy at [place] approximately 8 months ago. PAST SURGICAL HISTORY: Status post right total knee replacement. ALLERGIES: To HALDOL and FLUPHENAZINE. MEDICATIONS: Genvoya and Zoloft. SOCIAL HISTORY: As per HPI. Positive history of tobacco use. He denies a history of injection drug use. He denies a history of STDs. LABORATORY DATA: White count 2.4, 18 neutrophils, 22 eosinophils, 49 lymphocytes, hematocrit 34.4, platelet count 60. Creatinine 0.8 and total bilirubin 0.05. Alkaline phosphatase 271, AST 111, ALT 60. Blood cultures negative. Viral panel pending. Urinalysis is negative. PHYSICAL EXAMINATION: General: He is thin and chronically ill appearing. Vital Signs: Temperature 98.5, blood pressure 114/71, pulse 84 and regular, respirations 20 per minute. HEENT: Sclerae anicteric. Positive oral candidiasis. Poor dentition. Neck: Supple. Positive cervical adenopathy. Heart: Sounds S1, S2. Lungs: Grossly clear. No rhonchi, rales or wheezing. Abdomen: Soft, nontender. Genital: No genital lesions noted. Extremities: Negative for edema. IMPRESSION: A 58-year-old male with a history of acquired immunodeficiency syndrome admitted for detox with fever, cough, and weakness. Influenza swab negative. Chest x-ray and CAT scan negative for acute pneumonia. He is noted to have pancytopenia, neutropenia, and eosinophilia. PLAN: At this time would observe off antibiotic therapy. Obtain records from primary provider regarding recent CD4 count, viral load, baseline CBC, and liver enzymes. I suspect that his pancytopenia, neutropenia, and elevated liver enzymes are likely chronic in nature; however, this needs to be verified. Eosinophilia of unclear etiology. If not recently done a sonogram of the abdomen and pelvis to rule out biliary tract disease would be indicated. Continue antiretroviral therapy, fluconazole for thrush. Thank you for the kind referral. ANA LATIF M.D. [id number]
--- NOTE | 2019-01-01 18:34 | PN ---
[facility] Progress Note (SOAP) Subjective: 58 y.o. male referred for consultation for rehab transfer , completing detox taper , patient was transferred from [facility] where he was admitted 12/27/18 for alcohol detox due to fever , pancytopenia . Patient reports etoh use since age 16 , with minimal interim sobriety , current use 2 pints/day , denies w /d seizures, reports tremors if not drinking , blackouts , denies recent falls while intoxicated . Cocaine use since , denies IVDU , reports current use 60 $ /day . Tobacco : 1 ppd . PMHX : liver cancer, HIV , Hep C no tx , oral candidiasis . Active Medications Chlordiazepoxide HCl (Librium -) 25 mg PO Q4H PRN PRN Reason: WITHDRAWAL(CONT SUBST) Stop: 01/03/19 02:13 Enoxaparin Sodium (Lovenox -) 40 mg SQ DAILY PENDING SALE TO [facility] Last Admin: 01/01/19 09:39 Dose: 40 mg Nystatin (Nystatin Oral Suspension -) 500,000 units PO Q6HPO PENDING SALE TO [facility] Last Admin: 01/01/19 17:27 Dose: 500,000 units Objective: CBC, BMP 01/01/19 08:00 12/31/18 11:45 Vital Signs - 24 hr 12/31/18 12/31/18 01/01/19 18:33 21:21 01:40 Temperature 99.9 F H 100.3 F H 98.1 F Pulse Rate 82 84 63 Respiratory 20 20 20 Rate Blood Pressure 140/72 121/70 118/76 O2 Sat by Pulse Oximetry (%) 01/01/19 01/01/19 01/01/19 02:00 06:00 09:54 Temperature 97.4 F L Pulse Rate 55 L Respiratory 20 20 20 Rate Blood Pressure 108/64 O2 Sat by Pulse 98 100 Oximetry (%) 01/01/19 01/01/19 01/01/19 10:00 13:40 17:50 Temperature 97.9 F 98.5 F 100.1 F H Pulse Rate 65 84 82 Respiratory 20 20 18 Rate Blood Pressure 122/73 114/71 138/81 O2 Sat by Pulse Oximetry (%) PE : thin, resting in bed , reports poor appetite . HEENT : NCAT EOMI mucosae moist Resp : no distress noted Neuro : AAO x 3 , no tremors Assessment: Alcohol dependence Cocaine dependence Nicotine dependence Plan: pt to transfer to rehab @ [facility] when medically stable . Discussed w/ pt , agreeable w/ POC .
[2019-01-02] MEDS: NYSTATIN 500,000 UNITS/5 ML SUSPENSION PO SCH ×4 (01:24→18:08)
[2019-01-02 07:59] LABS: ANION GAP 4 MMOL/L (8-16); BLOOD UREA NITROGEN 18 mg/dL (7-18); CALCIUM 7.8 mg/dL (8.5-10.1); CHLORIDE 107 mmol/L (98-107); CO2 25 mmol/L (21-32); CREATININE 0.8 mg/dL (0.55-1.3); GLUCOSE,RANDOM 73 mg/dL (74-106); MAGNESIUM 1.9 mg/dL (1.8-2.4); PHOSPHOROUS 3.4 mg/dL (2.5-4.9); POTASSIUM 4.1 mmol/L (3.5-5.1); SODIUM 136 mmol/L (136-145)
[2019-01-02] MEDS ORDERED: FLUCONAZOLE 100 MG TABLET (UD) PO ONE ×2 (09:15→16:14)
[2019-01-02 09:32] LABS: BASO % 0.8 % (0-2.0); EOS % 16.1 % (0-4.5); HEMATOCRIT 35.1 % (35.4-49); HEMOGLOBIN 12.1 GM/dL (11.7-16.9); LYMPH % 52.1 % (8-40); MCH 32.3 pg (25.7-33.7); MCHC 34.5 g/dl (32.0-35.9); MEAN CELL VOLUME 93.6 fl (80-96); MEAN PLT VOLUME 7.9 fl (7.5-11.1); MONO % 12.2 % (3.8-10.2); NEUT % 18.8 % (42.8-82.8); PLATELET COUNT 59 K/MM3 (134-434); RBC 3.75 M/mm3 (4.00-5.60); RDW 17.6 % (11.9-15.9); WHITE BLOOD COUNT 3.4 K/mm3 (4.0-10.0)
[2019-01-02] MEDS: SERTRALINE HCL 50 MG TABLET (FP) PO SCH (09:38)
[2019-01-02] MEDS: DOCUSATE SODIUM 100 MG CAPSULE (FP) PO SCH ×2 (09:38→22:39)
[2019-01-02] MEDS ORDERED: PT OWN MED DRAWER 7, Y5N ONE ×2 (10:53→19:14)
--- NOTE | 2019-01-02 11:28 | PN ---
Teaching Attending Note Name of Resident: Sebastian Gardner ATTENDING PHYSICIAN STATEMENT I saw and evaluated the patient. I reviewed the resident's note and discussed the case with the resident. I agree with the resident's findings and plan as documented. SUBJECTIVE:states cough is about the same. odynophagia resolved. tolerating diet. denies CP, SOB, fever, chills, N/V/C/D OBJECTIVE: Last Vital Signs Temp Pulse Resp BP Pulse Ox 97.6 F 74 20 111/59 L 100 01/02/19 09:31 01/02/19 09:31 01/02/19 09:31 01/02/19 09:31 01/01/19 21:12 General NAD HEENT +tongue plaques Lungs CTA B/L no wheezing/rales/rhonchi Abdomen soft NT/ND ASSESSMENT AND PLAN: 58yo M with PMH continuous polysubstance abuse (crack and ETOH), HIV, HCV unclear if treated, HCC s/p Rtx sent from [facility] with productive cough adn fever 101 1. Sepsis due to suspected PNA- Tm 100.1 with leukopenia. +neutropenic. no signs of infection. will call PMD for baseline values. flu negative. ID on board 2. Thrush- started on fluconazole 100mg x7days. cont nystatin S&S 3. HIV- CD4 count/VL pending. cont HARRT 4. constipation- start bowel regimen 5. thrombocyotpenia- no signs of bleeding. monitor 6. ETOH withdrawal- ciwa 0. completed librium detox. plan to return to [facility] for inpatient rehab when medically optimized. 7. HCV- unknown if treated. reach out to PMD 8. HCC - on current radiation therapy 9. DVT ppx- SCD. hold pharmacologic anticoag in setting of thrombocytopenia 10. plan to d/c to [facility] in next 24H
--- NOTE | 2019-01-02 11:53 | PN ---
Physical Exam: SUBJECTIVE: Patient seen and examined at bedside. Low grade temp overnight 100.1 , No new complaints. odynophagia resolved. States that his cough is improved but still w/ some brown sputum. OBJECTIVE: Vital Signs Period Temp Pulse Resp BP Sys/Weinberg Pulse Ox Last 24 Hr 97.6 F-100.1 F 74-84 18-20 111-138/59-86 100-100 GENERAL: The patient is awake, alert, and fully oriented, in no acute distress. HEENT +tongue plaques, Normal with no signs of trauma. NECK: Trachea midline, full range of motion, supple. LUNGS: CTAB HEART: RRR, S1, S2 without murmur, rub or gallop. ABDOMEN: Soft, NTND, normoactive bowel sounds, no guarding, no rebound, no hepatosplenomegaly, no masses. EXTREMITIES: 2+ pulses, warm, well-perfused, no edema. NEUROLOGICAL: Cranial nerves II through X grossly intact. Normal speech, gait not observed. SKIN: Warm, dry, normal turgor, no rashes or lesions noted Laboratory Results - last 24 hr 01/01/19 01/02/19 01/02/19 08:00 06:45 07:00 WBC 3.4 L RBC 3.75 L Hgb 12.1 Hct 35.1 L MCV 93.6 MCH 32.3 MCHC 34.5 RDW 17.6 H Plt Count 59 L MPV 7.9 Absolute Neuts (auto) 0.6 L Neutrophils % 18.8 L Neutrophils % (Manual) 14.7 L D Band Neutrophils % 1.0 Lymphocytes % 52.1 H Lymphocytes % (Manual) 43.2 H D Monocytes % 12.2 H Monocytes % (Manual) 13 H Eosinophils % 16.1 H Eosinophils % (Manual) 23.2 H Basophils % 0.8 Basophils % (Manual) 2.1 H Myelocytes % (Man) 0 Promyelocytes % (Man) 0 Blast Cells % (Manual) 0 Nucleated RBC % 1 H Metamyelocytes 0 D Hypochromia 0 Platelet Estimate Decreased Polychromasia 0 Poikilocytosis 0 Anisocytosis 1+ Microcytosis 0 Macrocytosis 1+ Target Cells 2+ Tear Drop Cells 1+ Sodium 136 Potassium 4.1 Chloride 107 Carbon Dioxide 25 Anion Gap 4 L BUN 18 Creatinine 0.8 Creat Clearance w eGFR > 60 Random Glucose 73 L Calcium 7.8 L Phosphorus 3.4 Magnesium 1.9 Active Medications Generic Name Dose Route Start Last Admin Trade Name Freq PRN Reason Stop Dose Admin Chlordiazepoxide HCl 25 mg 12/31/18 02:14 Librium - PO 01/03/19 02:13 Q4H PRN WITHDRAWAL(CONT SUBST) Docusate Sodium 100 mg 01/02/19 10:00 01/02/19 09:38 Colace - PO 100 mg BID ALIREZA Administration Elvitegravir/Cobicis/Emtricit/Tenof 1 tab 01/02/19 10:00 Genvoya (Non-Formulary) PO DAILY ALIREZA Enoxaparin Sodium 40 mg 12/31/18 13:30 01/01/19 09:39 Lovenox - SQ 40 mg DAILY ALIREZA Administration Fluconazole 100 mg 01/02/19 11:40 Diflucan - PO DAILY ALIREZA Nystatin 500,000 units 12/31/18 12:00 01/02/19 05:04 Nystatin Oral Suspension - PO 500,000 units Q6HPO ALIREZA Administration Senna 1 tab 01/02/19 22:00 Senna - PO HS ALIREZA Sertraline HCl 100 mg 01/02/19 10:00 01/02/19 09:38 Zoloft - PO 100 mg DAILY ALIREZA Administration ASSESSMENT/PLAN: 58 yo m w/ PMH polysubstance abuse (crack and ETOH), HIV diagnosed in 1996 (on Genvoya), hep C, HCC (radiation therapy at [place]) who was sent to the ED from [facility] for cough and fever 101, found to be neutropenic. #Sepsis 2/2 suspected PNA -Cough, fever, with leukopenia. +neutropenic. no signs of infection on imaging -CT chest negative for infiltrate -fevers improving (Tmax 100.1) -urine for legionella negative - flu, Urine cx neg -Respiratory virus panel pending -as patient improving off ABX, will continue to observe -ID consult -monitor WBC counts -Neutropenic precautions -will call PMD for baseline values #oral candidiasis 2/2 immunocompromised state -Nystatin swish and swallow q6h x7d -start fluconazole 100mg x7days #HIV -c/w HAART (genvoya) -f/u ID reccs for further guideance -CD4+, viral load pending, will call PMD for baseline values #ETOH abuse - ciwa 0 -completed librium detox -plan to return to [facility] for inpatient rehab when medically optimized. #thrombocyotpenia- no signs of bleeding. monitor #HCV- unknown if treated. reach out to PMD #constipation- start bowel regimen #FEN -no fluids indicated -replete PRN -neutropenic diet #Prophy -SCD. hold AC in setting of thrombocytopenia #dispo -admit med surg -plan to d/c to [facility] in next 24H if remains stable and afebrile Visit type - Emergency Visit Emergency Visit: Yes ED Registration Date: 12/31/18 Care time: The patient presented to the Emergency Department on the above date and was hospitalized for further evaluation of their emergent condition. - New Patient This patient is new to me today: Yes Date on this admission: 01/02/19 - Critical Care Critical Care patient: No
[2019-01-02 15:10] VITALS: BMI 22.4
[2019-01-02] MEDS: (Elviteg/Cob/Emtri/Tenof Alafen [Genvoya Tablet] PO SCH (15:53)
[2019-01-02] MEDS: SENNOSIDES 8.6MG TABLET (FP) PO SCH (22:39)
[2019-01-03] MEDS: NYSTATIN 500,000 UNITS/5 ML SUSPENSION PO SCH ×4 (00:50→17:09)
[2019-01-03] MEDS ORDERED: PT OWN MED DRAWER 7, Y5N ONE ×2 (06:30→09:50)
[2019-01-03] MEDS: FLUCONAZOLE 100 MG TABLET (UD) PO SCH (09:54)
[2019-01-03] MEDS: DOCUSATE SODIUM 100 MG CAPSULE (FP) PO SCH ×2 (09:54→21:08)
[2019-01-03] MEDS: (Elviteg/Cob/Emtri/Tenof Alafen [Genvoya Tablet] PO SCH (09:55)
[2019-01-03] MEDS: SERTRALINE HCL 50 MG TABLET (FP) PO SCH (09:55)
[2019-01-03] MEDS ORDERED: FLUCONAZOLE 100 MG TABLET (UD) PO SCH ×2 (10:00)
[2019-01-03] MEDS: MULTIVITAMINS (DAILY MVI) TABLET (FP) PO SCH (10:16)
[2019-01-03] MEDS: THIAMINE HCL 100 MG TABLET (FP) PO SCH (10:16)
[2019-01-03] MEDS: FOLIC ACID 1 MG TABLET (FP) PO SCH (10:16)
--- NOTE | 2019-01-03 16:37 | DS ---
Physical Exam: SUBJECTIVE: Patient seen and examined at bedside. afebrile 48hr, No new complaints. odynophagia resolved. States that his cough is improved OBJECTIVE: Vital Signs Period Temp Pulse Resp BP Sys/Weinberg Pulse Ox Last 24 Hr 97.3 F-98.2 F 62-80 18-20 110-140/69-88 97-100 PHYSICAL EXAM GENERAL: The patient is awake, alert, and fully oriented, in no acute distress. HEENT +tongue plaques, Normal with no signs of trauma. NECK: Trachea midline, full range of motion, supple. LUNGS: CTAB HEART: RRR, S1, S2 without murmur, rub or gallop. ABDOMEN: Soft, NTND, normoactive bowel sounds, no guarding, no rebound, no hepatosplenomegaly, no masses. EXTREMITIES: 2+ pulses, warm, well-perfused, no edema. NEUROLOGICAL: Cranial nerves II through X grossly intact. Normal speech, gait not observed. SKIN: Warm, dry, normal turgor, no rashes or lesions noted LABS Laboratory Results - last 24 hr 01/01/19 13:00 Strongyloides IgG Ab Negative HOSPITAL COURSE: Date of Admission:12/31/18 Date of Discharge: 01/03/19 58 yo m w/ PMH polysubstance abuse (crack and ETOH), HIV diagnosed in 1996 (on Genvoya), hep C, HCC (radiation therapy at [place]) who was sent to the ED from [facility] for cough and fever 101, found to be neutropenic. #Admitted for Sepsis 2/2 suspected PNA -Cough, fever, with leukopenia. + neutropenic. no signs of infection on imaging, CT chest negative for infiltrate , urine for legionella, flu, bcx, and Urine cx neg. pt s/p cef/azithromycin 1 dose in ED. was then monitored off abx due to neg imaging, per ID recs. pt given supportive care. pt improved....cough improved and fevers came down. currently afebrile 48hr. Of note, pt w/ oral candidiasis 2/2 immunocompromised state, was tx w/ Nystatin and fluconazole. will cont w/ w/ Nystatin and fluconazole for 5 more days. CD4+, viral load pending, pt cont on HAART therapy (genvoya). pt completed librium detox, ciwa 0, requesting [facility] for inpatient rehab Noted to have thrombocyotpenia, eosinophilia- no signs of bleeding and strongiloides neg. We tried to obtain pt baseline labs from PCP. however pt did not remember pcp info/name, so we were unable to contact him. pt pharmacy listed in EMR did not have any meds ordered on record. We were able to contact Oncologist Dr. Nikhil Rasheed [facility] ([phone], fax# [phone]) and faxed info release forms. awaiting for them to fax to us whatever info they can provide us. pt is hemodynamically stable, afebrile and ready for transfer to [facility] for rehab, per pt request Minutes to complete discharge: 39 Discharge Summary Reason For Visit: FEVER HIV INFECTION Current Active Problems Fever (Acute) HIV (human immunodeficiency virus infection) (Acute) Condition: Good - Instructions Diet, Activity, Other Instructions: you came from [facility] detox because you were having fevers, cough and oral candidiasis thrush (fungal infection). your ct scan showed no signs of pneumonia. You were likely having a viral cold. we gave you supportive care with fluids and gave you medications to treat your oral candidiasis thrush. Your CT scan showed some noncalcified pulmonary nodules. Please talk to your primary care physician about repeating ct scan in 12 months. Please resume your home meds. Please continue taking at [facility], nystatin and fluconazole for 5 more days to treat your oral candidiasis thrush Please have [facility] repeat your labs including your CBC (complete blood count ) and have these results sent to your primary care physician Please follow up with your primary care physician within 1 week Please follow up with Infectious disease Dr. Cruz or your own Infectious disease within 1 week Please follow up with your Oncologist Dr. Nikhil Rasheed [facility] ([phone] , fax# [phone]) within 2 weeks If you experience any withdrawal symptoms including, profuse sweating, palpitations, hallucinations, headache, nausea, vomit, blood in vomit or blood in stools, fevers, cough, chills, blurry vision, please call 911 or go to the ER. Referrals: Vernon Cruz MD [Staff Physician] - 1 Week Disposition: TRANSFER ACUTE CARE/OTHER HOSP - Home Medications Comprehensive Discharge Medication List: Ambulatory Orders Elviteg/Cob/Emtri/Tenof Alafen [Genvoya Tablet] 1 each PO DAILY 12/27/18 Sertraline HCl [Zoloft] 100 mg PO DAILY 12/27/18 Docusate Sodium [Colace -] 100 mg PO BID capsule 01/03/19 Fluconazole [Diflucan -] 100 mg PO DAILY 5 Days tablet 01/03/19 Nystatin Oral Suspension - [Nystatin Oral Susp 777030 Units/5 ML -] 500,000 units PO Q6HPO 5 Days cup 01/03/19 Sennosides [Senna -] 1 tab PO HS tablet 01/03/19 This patient is new to me today: Yes Date on this admission: 01/03/19 Emergency Visit: Yes ED Registration Date: 12/31/18 Care time: The patient presented to the Emergency Department on the above date and was hospitalized for further evaluation of their emergent condition. Critical Care patient: No - Discharge Referral Referred to [facility] Med P.C.: No
--- NOTE | 2019-01-03 20:42 | PN ---
Teaching Attending Note Name of Resident: Sebastian Gardner ATTENDING PHYSICIAN STATEMENT I saw and evaluated the patient. I reviewed the resident's note and discussed the case with the resident. I agree with the resident's findings and plan as documented. SUBJECTIVE: Feels well. Complains of dry cough - no sputum. No fever/chills. No abdominal pain/nausea/vomiting/diarrhea/melena. OBJECTIVE: Afebrile, Hemodynamically Stable. Last Vital Signs Temp Pulse Resp BP Pulse Ox 98.3 F 67 20 133/87 100 01/03/19 18:56 01/03/19 18:56 01/03/19 18:56 01/03/19 18:56 01/03/19 09:00 HEENT - Atraumatic, Normocephalic. Heart - S1, S2, RRR Lungs - clear to auscultation Abdomen - Soft, non-tender. Bowel Sounds normal. Extremities - no edema. No calf tenderness. Laboratory Results - last 24 hr 01/01/19 13:00 Strongyloides IgG Ab Negative Current Medications Generic Name Dose Route Start Last Admin Trade Name Hiq PRN Reason Stop Dose Admin Docusate Sodium 100 mg 01/02/19 10:00 01/03/19 09:54 Colace - PO 100 mg BID ALIREZA Administration Elvitegravir/Cobicis/Emtricit/Tenof 1 tab 01/02/19 10:00 01/03/19 09:55 Genvoya (Non-Formulary) PO 1 tab DAILY ALIREZA Administration Enoxaparin Sodium 40 mg 12/31/18 13:30 01/01/19 09:39 Lovenox - SQ 40 mg DAILY ALIREZA Administration Fluconazole 100 mg 01/02/19 11:40 01/03/19 09:54 Diflucan - PO 01/07/19 10:01 100 mg DAILY ALIREZA Administration Folic Acid 1 mg 01/03/19 10:00 01/03/19 10:16 Folic Acid - PO 1 mg DAILY ALIREZA Administration Multivitamins/Minerals/Vitamin C 1 tab 01/03/19 10:00 01/03/19 10:16 Tab-A-Vit - PO 1 tab DAILY ALIREZA Administration Nystatin 500,000 units 12/31/18 12:00 01/03/19 17:09 Nystatin Oral Suspension - PO 500,000 units Q6HPO ALIREZA Administration Senna 1 tab 01/02/19 22:00 01/02/19 22:39 Senna - PO 1 tab HS ALIREZA Administration Sertraline HCl 100 mg 01/02/19 10:00 01/03/19 09:55 Zoloft - PO 100 mg DAILY ALIREZA Administration Thiamine HCl 100 mg 01/03/19 10:00 01/03/19 10:16 Vitamin B1 - PO 100 mg DAILY ALIREZA Administration Home Medications Medication Instructions Recorded Elviteg/Cob/Emtri/Tenof Alafen 1 each PO DAILY 12/27/18 [Genvoya Tablet] Sertraline HCl [Zoloft] 100 mg PO DAILY 12/27/18 Docusate Sodium [Colace -] 100 mg PO BID capsule 01/03/19 Fluconazole [Diflucan -] 100 mg PO DAILY 5 Days tablet 01/03/19 Nystatin Oral Suspension - 500,000 units PO Q6HPO 5 Days cup 01/03/19 [Nystatin Oral Susp 888678 Units/5 ML -] Sennosides [Senna -] 1 tab PO HS tablet 01/03/19 ASSESSMENT AND PLAN: 58 year old male with history of Polysubstance abuse (crack cocaine, Alcohol), HIV (claims compliance with HAART), Hepatitis C (unclear if treated), HCC s/p RTx, Depression, sent from [facility] with productive cough, myalgia and fever 101. 1. Sepsis secondary to likely Acute Viral Syndrome - resolved. Afebrile, Hemodynamically Stable. CXR - no Pneumonia Seen by ID - Off Abx 2. Oral Thrush - continue Fluconazole for total 7 days 3. HIV/AIDS - CD4 count/VL pending. Cont HAART. ID follow up. 4. Neutropenia/Thrombocytopenia, likley sec to HIV - discussed with ID Dr. Cruz - afebrile currently - for out-patient follow up. 5. Acute Alcohol withdrawal - completed Librium detox protocol. 6. Hepatitis C, unknown if treated - to follow with ID on discharge. 7. Hepatocellular Ca s/p RTx - to follow with Oncology 8. Depression - continue Sertraline. Dispo - plan to return to .
[2019-01-03] MEDS: SENNOSIDES 8.6MG TABLET (FP) PO SCH (21:08)
[2019-01-04] MEDS: NYSTATIN 500,000 UNITS/5 ML SUSPENSION PO SCH ×3 (00:40→12:13)
[2019-01-04 08:09] VITALS: BP 144/95; PULSE 64; TEMP 98.2
[2019-01-04] MEDS: ENOXAPARIN NA (PORCINE) 40 MG/0.4 ML DISP.SYRIN SQ SCH (09:01)
[2019-01-04] MEDS: FOLIC ACID 1 MG TABLET (FP) PO SCH (09:02)
[2019-01-04] MEDS: THIAMINE HCL 100 MG TABLET (FP) PO SCH (09:02)
[2019-01-04] MEDS: MULTIVITAMINS (DAILY MVI) TABLET (FP) PO SCH (09:02)
[2019-01-04] MEDS: DOCUSATE SODIUM 100 MG CAPSULE (FP) PO SCH (09:02)
[2019-01-04] MEDS: SERTRALINE HCL 50 MG TABLET (FP) PO SCH (09:02)
[2019-01-04] MEDS: FLUCONAZOLE 100 MG TABLET (UD) PO SCH (09:02)
[2019-01-04] MEDS ORDERED: PT OWN MED DRAWER 7, Y5N ONE (09:05)
[2019-01-04] MEDS: (Elviteg/Cob/Emtri/Tenof Alafen [Genvoya Tablet] PO SCH (09:06)
--- NOTE | 2019-01-04 11:53 | PN ---
Progress Note (short form) - Note Progress Note: Patient seen and examined at bedside. afebrile 72hr, No new complaints. odynophagia resolved. States that his cough is improved GENERAL: The patient is awake, alert, and fully oriented, in no acute distress. HEENT +tongue plaques, Normal with no signs of trauma. NECK: Trachea midline, full range of motion, supple. LUNGS: CTAB HEART: RRR, S1, S2 without murmur, rub or gallop. ABDOMEN: Soft, NTND, normoactive bowel sounds, no guarding, no rebound, no hepatosplenomegaly, no masses. EXTREMITIES: 2+ pulses, warm, well-perfused, no edema. NEUROLOGICAL: Cranial nerves II through X grossly intact. Normal speech, gait not observed. SKIN: Warm, dry, normal turgor, no rashes or lesions noted pt was awaiting bed at [facility] overnight. medically optimized and ready for dc yesterday. pt now has bed at [facility] and will be dcd today we will try to schedule f/u outpt appointment w/ Dr ana hernandez for pt's pancytopenia within 1 week. pt informed and aware, and will be given referral as well and can schedule appointment for a date of his choosing
--- NOTE | 2019-01-04 19:29 | PN ---
Teaching Attending Note Name of Resident: Sebastian Gardner ATTENDING PHYSICIAN STATEMENT I saw and evaluated the patient. I reviewed the resident's note and discussed the case with the resident. I agree with the resident's findings and plan as documented. SUBJECTIVE: Feels well. No fever/chills. No abdominal pain/nausea/vomiting/ diarrhea/melena. OBJECTIVE: Afebrile, Hemodynamically Stable. Last Vital Signs Temp Pulse Resp BP Pulse Ox 98.2 F 64 17 144/95 99 01/04/19 08:07 01/04/19 08:07 01/04/19 08:07 01/04/19 08:07 01/04/19 09:00 HEENT - Atraumatic, Normocephalic. Heart - S1, S2, RRR Lungs - clear to auscultation Abdomen - Soft, non-tender. Bowel Sounds normal. Extremities - no edema. No calf tenderness. Laboratory Results - last 24 hr 12/30/18 17:25 HIV-1 RNA, Qual (TMA) Positive H Home Medications Medication Instructions Recorded Elviteg/Cob/Emtri/Tenof Alafen 1 each PO DAILY 12/27/18 [Genvoya Tablet] Sertraline HCl [Zoloft] 100 mg PO DAILY 12/27/18 Docusate Sodium [Colace -] 100 mg PO BID capsule 01/03/19 Fluconazole [Diflucan -] 100 mg PO DAILY 5 Days tablet 01/03/19 Nystatin Oral Suspension - 500,000 units PO Q6HPO 5 Days cup 01/03/19 [Nystatin Oral Susp 854820 Units/5 ML -] Sennosides [Senna -] 1 tab PO HS tablet 01/03/19 ASSESSMENT AND PLAN: 58 year old male with history of Polysubstance abuse (crack cocaine, Alcohol), HIV (claims compliance with HAART), Hepatitis C (unclear if treated), HCC s/p RTx, Depression, sent from [facility] with productive cough, myalgia and fever 101. 1. Sepsis secondary to likely Acute Viral Syndrome - resolved. Afebrile, Hemodynamically Stable. CT Chest - no Pneumonia Seen by ID - Stable off Abx 2. Oral Thrush - continue Fluconazole for total 7 days 3. HIV/AIDS - CD4 count/VL pending. Cont HAART. ID follow up. 4. Neutropenia/Thrombocytopenia, likley sec to HIV - discussed with ID Dr. Cruz - afebrile currently - for out-patient follow up and Hematology referral. Afebrile, Hemodynamically Stable with no signs of bruising/bleeding. 5. Acute Alcohol withdrawal - completed Librium detox protocol. 6. Hepatitis C, unknown if treated - to follow with ID on discharge. 7. Hepatocellular Ca s/p RTx - to follow with Oncology 8. Depression - continue Sertraline. 9. Pulmonary Nodules on CT Chest - requires 1 year imaging follow up. Dispo - plan to return to [facility].
== END 2019-01-04 13:15 | disposition other institution (70) | DRG 892 ==
LOC: JER 16:25 → OBSVTOIN 23:29 → UNDOADMOB 23:29 → INTOOBSV 23:29 → JERBED 23:29 → J7W 12-31 04:26 → OBSVTOIN 12-31 07:37 → J7W 12-31 14:30
PROVIDERS: ADMIT Internal Medicine
DX: A41.9 Sepsis, unspecified organism (principal); F14.20 Cocaine dependence, uncomplicated; B20 Human immunodeficiency virus [HIV] disease; B37.0 Candidal stomatitis; D72.1 Eosinophilia; B19.20 Unspecified viral hepatitis C without hepatic coma; R74.0 Nonspecific elevation of levels of transaminase and lactic acid dehydrogenase [LDH]; R13.10 Dysphagia, unspecified; F10.230 Alcohol dependence with withdrawal, uncomplicated; C22.7 Other specified carcinomas of liver; F17.210 Nicotine dependence, cigarettes, uncomplicated; K59.00 Constipation, unspecified
CPT/HCPCS: 36415; 71046-TC-FY; 71250-TC; 80048; 80053; 81003; 83735; 84100; 85025; 85651; 86140; 86359; 86360; 86682; 87040; 87070; 87077; 87086; 87186; 87205; 87535; 87633; 87804; 87899; 93005; 93010; 94010; 99282-25; G0378; J7030